=== PATIENT | male | born 1990 | race African-American/Black ===

== ENCOUNTER 2019-03-28 07:14 | Inpatient (IN) | payer SELFPAY ==
[2019-03-28 08:02] LABS: Absolute Lymphocytes (CBC) 1.9 K/uL (0.7-4.9); Basophils % 0.4 % (0-1.3); Hematocrit 41.9 % (39.6-49.0); Lymphocytes % 22.6 % (15.3-44.8); MPV 9.1 fL (7.6-11.3); RBC Red Blood Cell Count 4.59 M/uL (4.33-5.43)
[2019-03-28 08:10] LABS: Albumin 3.6 g/dL (3.4-5.0); Bilirubin Direct 0.3 mg/dL (0-0.2); Potassium 3.8 mmol/L (3.5-5.1)
[2019-03-28] MEDS ORDERED: NA CHLORIDE 0.9% 1,000 ML ONE (08:18)
--- NOTE | 2019-03-28 09:02 | RAD REPORT ---
EXAM DESCRIPTION: CT - Abdomen Pelvis W Contrast - 03/28/2019 8:40 am CLINICAL HISTORY: Abdominal pain COMPARISON: none. TECHNIQUE: Computed axial tomography of the abdomen pelvis was obtained. 100 cc Isovue-300 was admin istered intravenously. Oral contrast was not requested which limits evaluation of bowel. All CT scans are performed using dose optimization technique as appropriate and may include automated exposure control or mA/KV adjustment according to patient size. FINDINGS: The liver, spleen, pancreas, adrenal and kidneys appear unremarkable. There is no evidence of diverticulitis. Multiloculated 27 x 15 millimeter low-density fluid collection is present within the right lower quad rant with an enhancing rim. Small amount ascites surrounds this. A normal-appearing appendix is not v isualized. No free air IMPRESSION: Multiloculated 27 x 15 millimeter fluid collection within the right lower quadrant infer ior to the cecum probably an abscess. A necrotic neoplasm is another consideration but is less likely . A normal appendix is not seen. Most likely the patient has a perforated appendicitis.
--- NOTE | 2019-03-28 09:13 | ER ---
Nurse's Notes [facility] Name: Dann Quinones Jr Age: 28 yrs Sex: Male : 1990 Arrival Date: 03/28/2019 Time: 07:17 Bed 19 Private MD: Diagnosis: Acute appendicitis-with perforation Presentation: 03/28 07:27 Presenting complaint: Patient states: right sided abd pain X 1 week , denies n/v/d, iw last BM was Saturday and was normal. Transition of care: patient was not received from another setting of care. Onset of symptoms was March 21, 2019. Risk Assessment: Do you want to hurt yourself or someone else? Patient reports no desire to harm self or others. Initial Sepsis Screen: Does the patient meet any 2 criteria? No. Patient's initial sepsis screen is negative. Does the patient have a suspected source of infection? No. Patient's initial sepsis screen is negative. Care prior to arrival: None. 07:27 Method Of Arrival: Ambulatory iw 07:27 Acuity: DAGOBERTO 3 iw Historical: - Allergies: 07:29 No Known Allergies; iw - Home Meds: 07:29 None [Active]; iw - PMHx: 07:29 None; iw - PSHx: 07:29 None; iw - Immunization history:: Adult Immunizations not up to date. - Coronavirus screen:: The patient has NOT traveled to [place], [place], or [place] in the past 14 days. Proceed with normal triage process as indicated. - Social history:: Smoking status: Patient reports the use of cigarette tobacco products, denies chronic smoking, but will smoke occasionally. - Ebola Screening: : Patient negative for fever greater than or equal to 101.5 degrees Fahrenheit, and additional compatible Ebola Virus Disease symptoms Patient denies exposure to infectious person Patient denies travel to an Ebola-affected area in the 21 days before illness onset No symptoms or risks identified at this time. Screenin:20 Abuse screen: Denies threats or abuse. Nutritional screening: No deficits noted. rb1 Tuberculosis screening: No symptoms or risk factors identified. Fall Risk None identified. Assessment: 07:20 General: Appears in no apparent distress. comfortable, Behavior is calm, cooperative. rb1 Pain: Complains of pain in right lower quadrant Pain currently is 6 out of 10 on a pain scale. Pain began x 1 week. Neuro: Level of Consciousness is awake, alert, obeys commands, Oriented to person, place, time, situation. Cardiovascular: Capillary refill < 3 seconds is brisk in bilateral fingers. Respiratory: Airway is patent Respiratory effort is even, unlabored, Respiratory pattern is regular, symmetrical. GI: Reports last BM was on Saturday, normal, denies blood in stool Patient currently denies diarrhea, nausea, vomiting. : Denies pain with urination. Derm: Skin is dry, Skin is normal, Skin temperature is warm. 07:20 GI: Bowel sounds present X 4 quads. Abd is soft Abd is non tender X 4 quads. rb1 08:20 Reassessment: Patient appears in no apparent distress at this time. No changes from rb1 previously documented assessment. 08:32 Reassessment: Pt. went to CT. rb1 09:20 Reassessment: Patient appears in no apparent distress at this time. Patient and/or rb1 family updated on plan of care and expected duration. Pain level reassessed. Patient is alert, oriented x 3, equal unlabored respirations, skin warm/dry/pink. 09:50 Reassessment: Educated the pt. on the importance of remaining NPO. Verbalized rb1 understanding. 10:13 Reassessment: Called report to KAITLYNN Hilliard. Information from the [facility] was given. All rb1 questions asked and answered. 10:20 Reassessment: Patient appears in no apparent distress at this time. Patient and/or rb1 family updated on plan of care and expected duration. Pain level reassessed. Patient is alert, oriented x 3, equal unlabored respirations, skin warm/dry/pink. Vital Signs: 07:29 BP 120 / 77; Pulse 71; Resp 16; Temp 98.0; Pulse Ox 98% on R/A; Weight 96.62 kg; Height iw 5 ft. 11 in. (180.34 cm); Pain 3/10; 08:25 BP 123 / 65; Pulse 63; Resp 18; Pulse Ox 100% ; rb1 09:25 BP 118 / 71; Pulse 54; Resp 17; Pulse Ox 100% on R/A; rb1 10:06 BP 121 / 77; Pulse 53; Resp 17; Pulse Ox 99% on R/A; Pain 3/10; rb1 07:29 Body Mass Index 29.71 (96.62 kg, 180.34 cm) ED Course: 07:17 Patient arrived in ED. as 07:18 Bettie Hunter FNP-C [facility]. kb 07:18 Trevor Macias MD is Attending Physician. kb 07:20 Patient has correct armband on for positive identification. Bed in low position. Call rb1 light in reach. Side rails up X 1. Pulse ox on. NIBP on. 07:27 Leandra Dawson, RN is Primary Nurse. rb1 07:28 Triage completed. iw 07:29 Arm band placed on. iw 07:43 Missed attempt(s): 20 gauge in right antecubital area. Labs were collected. IV inserted rb1 FARHAD Hylton student.. Bleeding controlled, band aid applied, catheter tip intact. 08:20 Inserted saline lock: 22 gauge in right wrist, using aseptic technique. rb1 08:37 CT completed. Patient tolerated procedure well. Patient moved back from CT. bq 08:40 CT Abd/Pelvis - IV Contrast Only In Process Unspecified. EDMS 09:13 Oniel Simmons MD is Hospitalizing Provider. kb 10:25 No provider procedures requiring assistance completed. Patient admitted, IV remains in rb1 place. Administered Medications: 08:22 Drug: NS 0.9% 1000 ml Route: IV; Rate: 1000 ml; Site: right wrist; rb1 09:22 Follow up: IV Status: Completed infusion rb1 09:27 Drug: Zosyn 3.375 grams Route: IVPB; Infused Over: 60 mins; Site: right wrist; rb1 10:20 Follow up: IV Status: Infusion continued upon admission rb1 Outcome: 09:13 Decision to Hospitalize by Provider. kb 10:25 Patient left the ED. rb1 10:25 Admitted to Tele accompanied by juana family with patient, via wheelchair, room 405, rb1 with chart, Report called to KAITLYNN Hilliard 10:25 Condition: stable 10:25 Instructed on 10:25 Instructed on the need for admit. Signatures: Dispatcher [employer] EDMS Bettie Hunter FNP-C [employer] TECHNICIAN-[employer] [place] Amelia as Almaz Agarwal, RN RN iw Leandra Dawson, RN RN rb1 Corrections: (The following items were deleted from the chart) 07:37 07:20 Pain: Complains of pain in right upper quadrant and right lower quadrant Pain rb1 currently is 6 out of 10 on a pain scale. Pain began x 1 week rb1
--- NOTE | 2019-03-28 09:13 | EDPHYS ---
Physician Documentation [facility] Name: Dann Quinones Jr Age: 28 yrs Sex: Male : 1990 Arrival Date: 03/28/2019 Time: 07:17 Bed 19 Private MD: ED Physician Trevor Macias HPI: 03/28 07:30 This 28 yrs old Black Male presents to ER via Ambulatory with complaints of Abdominal kb Pain. 07:30 The patient presents with abdominal pain right lower quadrant. Onset: The kb symptoms/episode began/occurred 7 day(s) ago. The symptoms do not radiate. Associated signs and symptoms: none. The symptoms are described as constant. Modifying factors: The symptoms are alleviated by nothing, the symptoms are aggravated by movement. Severity of pain: At its worst the pain was mild moderate in the emergency department the pain is unchanged. The patient has not recently seen a physician. Pt reports RLQ pain since last Saturday (7 days ago). States he hasn't taken anything for the pain. The pain hasn't gotten worse since it began, has been constant. Reports he came in this morning because his made him.. Historical: - Allergies: 07:29 No Known Allergies; iw - Home Meds: 07:29 None [Active]; iw - PMHx: 07:29 None; iw - PSHx: 07:29 None; iw - Immunization history:: Adult Immunizations not up to date. - Coronavirus screen:: The patient has NOT traveled to [place], [place], or [place] in the past 14 days. Proceed with normal triage process as indicated. - Social history:: Smoking status: Patient reports the use of cigarette tobacco products, denies chronic smoking, but will smoke occasionally. - Ebola Screening: : Patient negative for fever greater than or equal to 101.5 degrees Fahrenheit, and additional compatible Ebola Virus Disease symptoms Patient denies exposure to infectious person Patient denies travel to an Ebola-affected area in the 21 days before illness onset No symptoms or risks identified at this time. ROS: 07:30 Constitutional: Negative for fever, chills, and weight loss, Neck: Negative for injury, kb pain, and swelling, Cardiovascular: Negative for chest pain, palpitations, and edema, Respiratory: Negative for shortness of breath, cough, wheezing, and pleuritic chest pain, Back: Negative for injury and pain, : Negative for injury, bleeding, discharge, and swelling, MS/Extremity: Negative for injury and deformity, Skin: Negative for injury, rash, and discoloration, Neuro: Negative for headache, weakness, numbness, tingling, and seizure. 07:30 Abdomen/GI: Positive for abdominal pain, Negative for nausea, vomiting, and diarrhea, constipation, abdominal cramps, abdominal distension, anorexia. Exam: 07:30 Constitutional: This is a well developed, well nourished patient who is awake, alert, kb and in no acute distress. Head/Face: Normocephalic, atraumatic. ENT: Nares patent. No nasal discharge, no septal abnormalities noted. Tympanic membranes are normal and external auditory canals are clear. Oropharynx with no redness, swelling, or masses, exudates, or evidence of obstruction, uvula midline. Mucous membranes moist. Neck: Trachea midline, no thyromegaly or masses palpated, and no cervical lymphadenopathy. Supple, full range of motion without nuchal rigidity, or vertebral point tenderness. No Meningismus. Chest/axilla: Normal chest wall appearance and motion. Nontender with no deformity. No lesions are appreciated. Cardiovascular: Regular rate and rhythm with a normal S1 and S2. No gallops, murmurs, or rubs. Normal PMI, no JVD. No pulse deficits. Respiratory: Lungs have equal breath sounds bilaterally, clear to auscultation and percussion. No rales, rhonchi or wheezes noted. No increased work of breathing, no retractions or nasal flaring. Back: No spinal tenderness. No costovertebral tenderness. Full range of motion. Skin: Warm, dry with normal turgor. Normal color with no rashes, no lesions, and no evidence of cellulitis. MS/ Extremity: Pulses equal, no cyanosis. Neurovascular intact. Full, normal range of motion. Neuro: Awake and alert, GCS 15, oriented to person, place, time, and situation. Cranial nerves II-XII grossly intact. Motor strength 5/5 in all extremities. Sensory grossly intact. Cerebellar exam normal. Normal gait. 07:30 Abdomen/GI: Inspection: abdomen appears normal, Bowel sounds: normal, in all quadrants, Palpation: soft, in all quadrants, nontender, in the left upper quadrant and left lower quadrant, mild abdominal tenderness, in the right upper quadrant, moderate abdominal tenderness, in the right lower quadrant. Vital Signs: 07:29 BP 120 / 77; Pulse 71; Resp 16; Temp 98.0; Pulse Ox 98% on R/A; Weight 96.62 kg; Height iw 5 ft. 11 in. (180.34 cm); Pain 3/10; 08:25 BP 123 / 65; Pulse 63; Resp 18; Pulse Ox 100% ; rb1 09:25 BP 118 / 71; Pulse 54; Resp 17; Pulse Ox 100% on R/A; rb1 10:06 BP 121 / 77; Pulse 53; Resp 17; Pulse Ox 99% on R/A; Pain 3/10; rb1 07:29 Body Mass Index 29.71 (96.62 kg, 180.34 cm) iw MDM: 07:19 Patient medically screened. kb 07:29 Data reviewed: vital signs, nurses notes. Data interpreted: Pulse oximetry: on room air kb is 98 %. Interpretation: normal. 09:12 Counseling: I had a detailed discussion with the patient and/or guardian regarding: the kb historical points, exam findings, and any diagnostic results supporting the discharge/admit diagnosis, lab results, radiology results, the need for further work-up and treatment in the hospital. Physician consultation: Oniel Simmons MD was contacted at 09:12, regarding admission, to the medical/surgical unit. patient's condition, and will see patient in ED, shortly. 03/28 07:23 Order name: Basic Metabolic Panel; Complete Time: 08:11 kb 03/28 07:23 Order name: CBC with Diff; Complete Time: 08:05 kb 03/28 07:23 Order name: Hepatic Function; Complete Time: 08:11 kb 03/28 07:23 Order name: Lipase; Complete Time: 08:11 kb 03/28 09:48 Order name: Basic Metabolic Panel EDMS 03/28 09:48 Order name: Basic Metabolic Panel EDMS 03/28 07:23 Order name: IV Saline Lock; Complete Time: 07:45 kb 03/28 08:12 Order name: CT Abd/Pelvis - IV Contrast Only; Complete Time: 09:06 kb 03/28 09:48 Order name: NPO EDMS 03/28 09:48 Order name: CBC with Automated Diff EDMS 03/28 09:48 Order name: CBC with Automated Diff EDMS 03/28 10:19 Order name: Urine Dipstick--Ancillary (enter results) eb 03/28 07:23 Order name: Labs collected and sent; Complete Time: 07:45 kb 03/28 07:23 Order name: Urine Dipstick-Ancillary (obtain specimen); Complete Time: 12:55 kb Administered Medications: 08:22 Drug: NS 0.9% 1000 ml Route: IV; Rate: 1000 ml; Site: right wrist; rb1 09:22 Follow up: IV Status: Completed infusion rb1 09:27 Drug: Zosyn 3.375 grams Route: IVPB; Infused Over: 60 mins; Site: right wrist; rb1 10:20 Follow up: IV Status: Infusion continued upon admission rb1 Disposition: 10:34 Co-signature as Attending Physician, Trevor Macias MD. rn Disposition: 03/28/19 09:13 Hospitalization ordered by Oniel Simmons for Inpatient Admission. Preliminary diagnosis is Acute appendicitis - with perforation. - Bed requested for Telemetry/MedSurg (Inpatient). - Status is Inpatient Admission. rb1 - Condition is Stable. - Problem is new. - Symptoms are unchanged. Signatures: Dispatcher [employer] EDSD Bettie Hunter, LANDSCAPE SUPERVISOR-C LANDSCAPE SUPERVISOR-Ckb Almaz Agarwal, KAITLYNN CALDERÓN iw Trevor Macias MD MD rn Barber, Rebecca, RN RN rb1 Saskia Kennedy Corrections: (The following items were deleted from the chart) 09:57 09:13 Hospitalization Ordered by Oniel Simmons MD for Inpatient Admission. Preliminary eb diagnosis is Acute appendicitis - with perforation. Bed requested for Telemetry/MedSurg (Inpatient). Status is Inpatient Admission. Condition is Stable. Problem is new. Symptoms are unchanged. kb 10:25 09:57 03/28/2019 09:13 Hospitalization Ordered by Oniel Simmons MD for Inpatient rb1 Admission. Preliminary diagnosis is Acute appendicitis - with perforation. Bed requested for Telemetry/MedSurg (Inpatient). Status is Inpatient Admission. Condition is Stable. Problem is new. Symptoms are unchanged. eb
[2019-03-28] MEDS ORDERED: PIPER/TAZO/NS 3.375gm 3.375 GM/100 ML BAG ONE (09:18)
[2019-03-28] MEDS ORDERED: ONDANSETRON 4 MG/2 ML VIAL IV PRN (09:45)
[2019-03-28 10:36] VITALS: BMI 28.8
[2019-03-28] MEDS: NA CHLORIDE 0.9% 1,000 ML IV SCH ×2 (10:53→17:25)
[2019-03-28] MEDS: MORPHINE 4 MG/ML SYR IV PRN ×2 (13:41→23:53)
[2019-03-28] MEDS: PIPER/TAZO/NS 3.375gm 3.375 GM/100 ML BAG IVPB SCH ×2 (17:12→23:53)
--- NOTE | 2019-03-29 03:02 | HP ---
Date of Admission: 03/28/2019 Diagnosis: Intraabdominal abscess. History Of Present Illness: This is the case of a 28-year-old patient, who comes to us complaining o f discomfort in the lower abdomen. He has been like that for 7 days. He has to look for medical att ention. He has been eating, he does not remember any trauma. The pain is kind of constant in the lower abdomen with some cramps. He had no dysuria, hematuria, he matochezia, or melena. No recent travel out of the country, no recent family members sick at home. The noted that he just always has pain and we asked him to come and he came to the ER. Past Allergies: None. Medications: None. Medical Problems: None. Surgeries: None. Social History: He does not smoke, he does not drink alcohol. Review of Systems: Ten points otherwise unremarkable. Physical Examination: General: The patient is awake and alert. HEENT: Pupils are equal and reactive, anicteric. Neck: Supple. Chest: Clear. Abdomen: Soft and depressible. No guarding, rebound, or peritoneal signs. Mild right lower quadran t suprapubic tenderness, but no guarding or rebound. No psoas signs. No Rovsing sign. No Coulter si gn. Rectal/Genitalia: Deferred. Extremities: Good capillary refill. Neuro: Alert and oriented x3. Laboratory Data: WBC count is 8.4, hemoglobin of 14, potassium 3.8. UA canceled. CAT scan of the abdomen and pelvis interpreted by Dr. Greenberg as a 2.7 cm fluid collection in the rig ht lower quadrant inferior to the cecum, probably an abscess. Assessment And Plan: A 28-year-old patient, with a small abscess in the right lower quadrant, unknow n etiology, unable to say if this is due to a neoplasm or his diverticulum or his appendix. The appe ndix cannot be identified on the CAT scan. Right now, patient is afebrile. He was tolerating diet, although the pain never got completely better. No fever at this moment. WBC count is normal. Still at the ER for the admission for IV antibiotics and I did agree. He has the option right now of lapa rotomy with possible resection, possible ostomy, appendectomy, drainage of intraperitoneal abscess. He also had the option of staying in the hospital, get IV antibiotics and see what can resolve his ab scess and if that happened, then he opens himself a possibility of in the future after the colonoscop y is done to make sure there is no neoplasm involved, then do an elective diagnostic laparoscopy and possible appendectomy, and any other necessary procedures. The pros and cons of each available optio n were discussed with him and obviously he opted for the conservative treatment at this moment, the o nly downside of that he has to be here on IV antibiotics and also that we will not feed him in the ne xt 24 to 48 hours until we have a clear understanding of how his clinical symptoms will benefit. ERLINDA/CRISTA Voice ID: [id number]
[2019-03-29] MEDS: NA CHLORIDE 0.9% 1,000 ML IV SCH ×4 (05:17→18:00)
[2019-03-29] MEDS: PIPER/TAZO/NS 3.375gm 3.375 GM/100 ML BAG IVPB SCH ×4 (05:18→23:39)
[2019-03-29 06:39] LABS: Basophils % 0.5 % (0-1.3); Hematocrit 37.5 % (39.6-49.0); Lymphocytes % 22.2 % (15.3-44.8); MPV 9.2 fL (7.6-11.3); RBC Red Blood Cell Count 4.13 M/uL (4.33-5.43)
[2019-03-29 06:47] LABS: BUN Blood Urea Nitrogen 9 mg/dL (7-18); Bicarbonate 24 mmol/L (21-32); Glucose Level 72 mg/dL (74-106); Potassium 3.8 mmol/L (3.5-5.1); Sodium Level 140 mmol/L (136-145)
[2019-03-29] MEDS: MORPHINE 4 MG/ML SYR IV PRN ×2 (11:19→17:07)
[2019-03-30] MEDS: MORPHINE 4 MG/ML SYR IV PRN (00:59)
[2019-03-30] MEDS: NA CHLORIDE 0.9% 1,000 ML IV SCH ×3 (00:59→18:18)
--- NOTE | 2019-03-30 01:09 | PN ---
Diagnosis: Right lower quadrant abscess. History Of Present Illness: This is the case of a 28-year-old patient, who comes to us with a 1-week history of abdominal pain. Since he was not getting completely better, he decided to come to the ER and found to have a right lower quadrant abscess of unknown etiology. Although, based on his age an d history, cannot rule out a colitis versus appendicitis. Since patient was hemodynamically stable, WBC count normal, we started on IV antibiotics with the plan, if he successfully clear the abscess, t o do a colonoscopy eventually and then elective appendectomy. If this does not improve, then we will proceed with a laparotomy, derangement of abscess, and any other indicated procedures that may inclu de an appendectomy, even a right colon resection, right cecectomy. He obviously do not want conserva tive treatment if possible. He is tolerating the ambulation. He is not on diet any time. He has no fever. WBC count today, once again, is still below 10. Physical Examination: CHEST: Clear. ABDOMEN: Soft and depressible. No guarding or rebound. No peritoneal signs. Mild lower abdominal tenderness, but no peritonitis. EXTREMITIES: Good capillary refill. Plan: We going to repeat CBC tomorrow. May give some clears. Continue antibiotics. Our plan for a ntibiotics is about at least 5-7 days of IV and in another week most likely by mouth if he continues without conservative treatment. If he clinically deteriorates then he knows that he will have to go for emergent surgery. He understands. ERLINDA/CRITSA Voice ID: [id number] Report ID: [id number]
[2019-03-30] MEDS: PIPER/TAZO/NS 3.375gm 3.375 GM/100 ML BAG IVPB SCH ×2 (05:54→14:46)
[2019-03-30] MEDS ORDERED: PIPER/TAZO/NS 3.375gm 3.375 GM/100 ML BAG IVPB SCH (09:00)
[2019-03-30] MEDS: ACETAMINOPHEN 500 MG TAB PO PRN (11:32)
--- NOTE | 2019-03-30 16:46 | PN ---
Date of Progress Note: 03/30/2019 Diagnosis: Intraabdominal abscess. Subjective: The patient is doing better. No short of breath or chest pain. No abdominal pain today . He has some mild generalized tenderness on the lower abdomen. Objective: Chest: Clear. Abdomen: Soft and depressible. No guarding or rebound. Extremities: Good capillary refill. Plan: Continue on antibiotics. Start clear liquid diet. CBC in a.m. HM/MODL Voice ID: [id number] Report ID: [id number]
[2019-03-31] MEDS: PIPER/TAZO/NS 3.375gm 3.375 GM/100 ML BAG IVPB SCH ×3 (00:49→17:08)
[2019-03-31] MEDS: ACETAMINOPHEN 500 MG TAB PO PRN (00:50)
[2019-03-31] MEDS: NA CHLORIDE 0.9% 1,000 ML IV SCH ×4 (02:00→16:27)
--- NOTE | 2019-03-31 17:14 | PN ---
Date of Progress Note: 03/31/2019 Diagnosis: Intraabdominal abscess. Subjective: Patient is doing well. No complaint. No shortness of breath. No chest pain. No nause a, no vomiting. Tolerating diet. Objective: Chest: Clear. Abdomen: Soft and depressible. Plan: We may repeat the CAT scan before discharge to make sure we made some progress. We have to de cide then the extend of his antibiotics which is going to be until tomorrow or until Saturday or 2 week s. We are going to repeat the CBC tomorrow morning and also thinking we may repeat the CAT scan once again, and the pain is in the clinical finding. ERLINDA/CRISTA Voice ID: [id number] Report ID: [id number]
[2019-04-01] MEDS: PIPER/TAZO/NS 3.375gm 3.375 GM/100 ML BAG IVPB SCH ×3 (00:12→16:00)
[2019-04-01] MEDS: NA CHLORIDE 0.9% 1,000 ML IV SCH ×3 (02:00→18:00)
[2019-04-01 04:27] LABS: Absolute Lymphocytes (CBC) 2.1 K/uL (0.7-4.9); Basophils % 0.5 % (0-1.3); Hematocrit 36.9 % (39.6-49.0); Lymphocytes % 33.2 % (15.3-44.8); MPV 8.5 fL (7.6-11.3); RBC Red Blood Cell Count 4.08 M/uL (4.33-5.43)
--- NOTE | 2019-04-01 09:52 | RAD REPORT ---
EXAM DESCRIPTION: CT - Abdomen Pelvis Wo Contrast - 04/01/2019 9:18 am CLINICAL HISTORY: follow up Pelvic abscess or mass COMPARISON: Abdomen Pelvis W Contrast dated 03/28/2019 TECHNIQUE: Axial [address] imaging of the abdomen and pelvis was performed without IV contrast. No IV contrast was given because of allergy, abnormal renal function, patient refusal or physician re quest. Oral contrast was given. All CT scans are performed using dose optimization technique as appropriate and may include automated exposure control or mA/KV adjustment according to patient size. FINDINGS: No suspicious findings in the lung bases. The liver, spleen and pancreas show no suspicious findings on non-contrast imaging. Gallbladder and b iliary tree are also without suspicious finding. No hydronephrosis or suspicious renal mass. No significant adrenal finding. Isodense renal masses an d pyelonephritis cannot be excluded in the absence of IV contrast. The urinary bladder is without sig nificant finding. No gastric abnormality identified. Small bowel to the distal ileum unremarkable. There is thickened, nodular appearance to the tip of the cecum. This extends to the ileocecal valve and minimally to the terminal ileum at the ileocecal valve. At the inferior tip of the cecum there is a 5.8 centimeter het erogeneous mass. Stranding is present in the adjacent soft tissues. There is a slight central hypoden sity to this mass. A single punctate 2 mm calcification is identified within this mass. Diameter the mass has increased slightly from approximately 5 cm to 6 cm. The thickening and nodulari ty of the cecum and ileocecal valve does appear more prominent than the March 28 study. Small react froilan lymph nodes are seen in the adjacent fatty tissues. A normal appendix is not identified. No free air or pneumatosis. No other site of inflammatory stranding. No hernia, mass or bulky lymphadenopathy. No suspicious bony findings. IMPRESSION: A 6 centimeter heterogeneous mass is present inferior to the tip of the cecum measuring slightly larger than the March 28 study. Thickened nodular pruitt of the ileocecal valve and cecum are present more prominent than the March 28 study. Given the patient's age, the most likely etiology is a perforated appendix with abscess or phlegmonou s mass. Malignancy of the appendix with perforation would be possible. Malignancy of the tip of the c ecum would be possible. Both are uncommon in a patient this age. The possible abscess or phlegmonous mass is not a drainable collection. Full assessment is limited is the absence of IV contrast.
[2019-04-02] MEDS: PIPER/TAZO/NS 3.375gm 3.375 GM/100 ML BAG IVPB SCH ×3 (00:17→18:37)
[2019-04-02] MEDS: NA CHLORIDE 0.9% 1,000 ML IV SCH ×3 (02:00→18:00)
--- NOTE | 2019-04-02 15:04 | PN ---
Date of Progress Note: 04/02/2019 Reason For Service: Intraabdominal abscess. Subjective: Patient is doing well. No nausea, no vomiting. Tolerating diet. No fever. WBC count is normal. No pain at this moment. No tenderness. Objective: Chest: Clear. Abdomen: Soft and depressible. No Coutler signs. No Rovsing sign. No psoas signs. No peritonitis. No guarding or rebound. Extremities: Good capillary refill. Laboratory Data: WBC count within normal limits. CAT scan of abdomen and pelvis repeat today after been on antibiotics for 5 days. On CAT scan, we noticed a slightly increase of it, still small absce ss is not drainable, is multiloculated. The patient clinically looks better. Plan: Patient has a few options. You can do laparotomy right now and then basically we go into that abscess. We might end up doing the cecectomy on this patient and continue along. Obviously he is a sking for alternative. We are trying to do elective evaluation after the abscess resolved. He is co mpletely asymptomatic at this moment, so the CAT scan findings even there may be just let us go with him and try to continue IV antibiotics until he completed 7 days and then another week at home with e ventually a colonoscopy, and the surgery will be done on him. I clarified that many times this surge ry is now just basically going to be elective. The reason for that is you have to make sure there is no neoplastic event or any other event that cause that abscess in that area and he is fully aware of that. He has the option and obviously he preferred the elective surgery if possible we give him a c cintia to minimize the complexity of the surgery. That will go with him as long as he clinically impr oves. We are going to complete until Saturday the 7 days of antibiotics, if he once again goes okay, t hen we will continue with the same plan. I talked to him yesterday about that when the CAT scan was done. Today, he is still asymptomatic, moving around. He is even tolerating diet. No family history of colon cancer. ERLINDA/CRISTA Voice ID: [id number] Report ID: [id number]
[2019-04-03] MEDS: NA CHLORIDE 0.9% 1,000 ML IV SCH ×3 (02:00→10:00)
[2019-04-03] MEDS: PIPER/TAZO/NS 3.375gm 3.375 GM/100 ML BAG IVPB SCH ×2 (02:37→07:55)
[2019-04-03 08:40] LABS: Absolute Lymphocytes (CBC) 1.4 K/uL (0.7-4.9); Basophils % 0.4 % (0-1.3); Hematocrit 39.4 % (39.6-49.0); Lymphocytes % 21.1 % (15.3-44.8); MPV 8.5 fL (7.6-11.3); RBC Red Blood Cell Count 4.36 M/uL (4.33-5.43)
[2019-04-03 12:33] VITALS: O2SAT 99
[2019-04-03 12:53] VITALS: BP 114/65; TEMP 97.5
--- NOTE | 2019-04-04 00:07 | DS ---
Date of Discharge: 04/03/2019 Diagnosis: Intraabdominal abscess. Subjective: This is the case of a 28-year-old patient, who comes to us after having a week episode o f lower abdominal pain, found to have intraabdominal abscess. At that moment he does not have immedi ate tenderness, but still has abscess in that area. They have options of laparotomy, appendectomy, p ossible bowel resection, possible ostomy. We also discussed the possibility of an elective diagnosti c lap and appendectomy after full workup was done. Since he was feeling better and he has normal WBC count, we started with our plan. He has been on a week of antibiotics. He is doing well right now, tolerating diet, passing flatus, ambulating, really any pain. No tenderness. No nausea, no vomitin g. No fever. Objective: Chest: Clear. Abdomen: Soft and depressible. No guarding, rebound, no perineal signs. No psoas signs. No Rovsin g sign. Extremities: Good capillary refill. Laboratory Data: WBC count normal. Plan: Like we mentioned to him, he might be able to go home on a week of antibiotics, will be Levaqu in and Flagyl. Followup in my office in 1 week. We will be repeating the CAT scan next week. We ma y consider doing a colonoscopy first followed by diagnostic laparoscopy, possible open appendectomy, or any other indicated procedures. He understood the importance of being compliant with treatment. If he gets worse and fever, abdominal pain comes back, come to the ER immediately. ERLINDA/CRISTA Voice ID: [id number] Report ID: [id number]
== END 2019-04-03 13:43 | disposition home or self-care (01) | DRG 373 ==
LOC: ER 07:14 → ERHOLD 09:47 → 4TH 10:16
PROVIDERS: ADMIT Surgery; ATTEND Surgery
DX: K65.1 Peritoneal abscess (principal)
CPT/HCPCS: 36415; 74176; 74177; 80048; 80076; 83690; 85025; 96361; 96365; 99285; J2405; J2543; J7030; Q9967